=== PATIENT | male | born 1995 | race Two or more races ===

== ENCOUNTER 2023-03-23 19:02 | Emergency (ER) | payer BC, OTHER, SELFPAY ==
[2023-03-23 19:33] VITALS: BP 127/74; PULSE 110; RESP 18; TEMP 36.4; O2SAT 100
--- NOTE | 2023-03-23 19:57 | ED.NAVMDI ---
HPI - Nausea/Vomiting/Diarrhea General Chief complaint: Nausea/Vomiting/Diarrhea Stated complaint: burning abdomen,nausea, vomiting Time Seen by Provider: 03/23/23 19:43 Source: patient and RN notes reviewed Mode of arrival: ambulatory Limitations: no limitations History of Present Illness HPI Narrative: Patient presents today complaining of a one-month history of nausea and burning in his upper abdomen. Also reports 2 episodes of vomiting yesterday. Currently rates his pain 6/10. Patient had an endoscopy yesterday by his refrigeration service technician and was told that he had gastritis. He was told to continue cimetidine that he has been taking. He has been taking in 3-4x the normal dose due to his symptoms. He is scheduled for a colonoscopy at the end of next week and follow-up in April. States he uses take Nexium for his GERD, but had troubles getting it covered by his insurance so he had to switch to the cimetidine. He has been taking some Zofran for his nausea and has a new prescription waiting for him at the pharmacy. Related Data Home Medications Medication Instructions Recorded Confirmed cimetidine 800 mg tablet 800 mg PO BID 03/23/23 03/23/23 emtricitabine 200 mg-tenofovir 1 tablet PO DAILY 03/23/23 03/23/23 disoproxil fumarate 300 mg tablet ergocalciferol (vitamin D2) 1,250 1,250 mcg PO WEEKLY 03/23/23 03/23/23 mcg (50,000 unit) capsule mesalamine 500 mg capsule,extended 500 mg PO DAILY 03/23/23 03/23/23 release (Pentasa) ondansetron 4 mg disintegrating 4 mg PO PRN PRN Nausea And Vomiting 03/23/23 03/23/23 tablet Allergies Allergy/AdvReac Type Severity Reaction Status Date / Time No Known Allergies Allergy Verified 03/23/23 19:11 Review of Systems Review of Systems: CONSTITUTIONAL: Denies body aches, fever, chills, or sweats. EYES: Denies visual changes, redness, or discharge. ENT: Denies rhinorrhea, congestion, sore throat, or otalgia. CARDIOVASCULAR: Denies chest pain, palpitations, or edema. RESPIRATORY: Denies cough or dyspnea. GASTROINTESTINAL: Denies diarrhea.+ abdominal burning, nausea, vomiting GENITOURINARY: Denies dysuria or hematuria. SKIN: Denies rash, itching, or wounds. MUSCULOSKELETAL: Denies back pain, joint pain, or myalgia. NEUROLOGIC: Denies headache, numbness, tingling, or weakness. PSYCH: Denies depression or anxiety. [facility] Past Medical History Medical History (Updated 03/23/23 @ 20:06 by Ngozi Linder, LOTTERIES AGENT, ) Diverticulosis Gastroparesis GERD (gastroesophageal reflux disease) Ileitis Comments At time of signature, I have reviewed and agree with nursing past medical, surgical, social and family history unless otherwise noted. Please see nursing chart for further information. There is no relevant family history pertinent to the presenting complaint Exam Narrative: GENERAL: Well-appearing, well-nourished, and in no acute distress. HEAD: Normocephalic, atraumatic. EYES: EOMI. No redness or drainage. Conjunctivae normal. ENT: Mucous membranes pink and moist. NECK: Normal AROM. CHEST: No respiratory distress. Clear to auscultation. HEART: Regular rate and rhythm. No murmur appreciated. Normal peripheral pulses. ABDOMEN: Soft, , nondistended, normal active bowel sounds. + tenderness to the epigastrium without rebound or guarding EXTREMITIES: Normal range of motion. No edema. SKIN: Warm, dry, no rash. Capillary refill normal. Normal skin turgor. NEURO: No focal deficits. Alert and oriented x3. Gait steady. PSYCH: Normal affect. No signs of depression or anxiety. Course Course Level of Care: Express Care Visit Vital Signs Vital signs: Vital Signs Temperature 97.6 F 03/23/23 19:33 Pulse Rate 110 H 03/23/23 19:33 Respiratory Rate 18 03/23/23 19:33 Blood Pressure 127/74 03/23/23 19:33 Pulse Oximetry 100 03/23/23 19:33 Oxygen Delivery Room Air 03/23/23 19:33 Temperature 97.6 F 03/23/23 19:33 Pulse Rate 110 H 03/23/23 1
== END 2023-03-23 20:06 | disposition home or self-care (01) ==
PROVIDERS: Emergency Provider Nurse Practitioner
DX: K29.70 Gastritis, unspecified, without bleeding (principal); K21.9 Gastro-esophageal reflux disease without esophagitis
CPT/HCPCS: 99213; G0463

== ENCOUNTER 2024-10-30 12:30 | Emergency (ER) | payer BC, SELFPAY ==
--- OUTSIDE RECORDS SUMMARY | 2024-10-30 12:34 | XMS_ITS | Clinical Summary ---
Author Organization [facility] Address [address] [place] [address] Phone Care Team Providers Care Flight Attendant/Inflight Supervisor Name Role Phone Christine Mathew Primary Care Provider [phone] Caro Garnica MD Unavailable Allergies No known active allergies Medications ergocalciferol (VITAMIN D) 69304 UNIT Capsule 3 Active emtricitabine-t enofovir (TRUVADA) 200-300 MG Tablet Take 1 Tablet by mouth daily. 4 Active ondansetron (ZOFRAN-ODT) 4 MG TABLET DISPERSIBLE Take 4 mg by mouth. 4 Active cyanocobalamin (VITAMIN B-12) 1000 MCG/ML Solution 1,000 mcg by Subcutaneous route every 14 days. 4 Active Cimetidine 800 MG Tablet Take 800 mg by mouth 2 times daily. 5 Active Fexofenadine HCl 30 MG TABLET DISPERSIBLE Take 30 mg by mouth. Active B-D 3CC LUER-LATISHA SYR 25GX1 25G X 1 3 ML Misc USE TO ADMINISTER B12 INJECTIONS DIRECTED Active linaCLOtide (LINZESS) 72 MCG Capsule Take 72 mcg by mouth. 5 Active omeprazole (PriLOSEC) 40 MG CAPSULE DELAYED RELEASE Take 40 mg by mouth. Active folic acid (FOLVITE) 1 MG TabletIndicatio ns:Folate deficiency TAKE 1 TABLET BY MOUTH EVERY DAY 30 Tablet 3 Active Active Problems Problem Noted Date Diagnosed Date Iron deficiency 01/07/2023 Encounters Date Type Department Care Team Description 08/24/2024 4:00 PM CDT Lab [facility] [address] [phone] Lab, [place] Anemia, unspecified type 08/24/2024 Travel from Last 3 Months Immunizations Immunization Administration Dates Next Due Influenza, Injectable, Mdck, Preservative Free 1 Family History Medical History Relation Name Comments Depression Mother Relation Name Status Comments Mother Social History Tobacco Use Types Packs/Day Years Used Date Smoking Tobacco: Never Smokeless Tobacco: Never Tobacco Cessation:Counseling Given: Not Answered Alcohol Use Standard Drinks/Week Comments Never 0 (1 standard drink = 0.6 oz pur e alcohol) Sex and Gender Information Value Date Recorded Sex Assigned at Not on file Legal Sex Male 3:56 PM CDT Gender Identity Not on file Sexual Orientation Not on file Last Filed Vital Signs Vital Sign Reading Time Taken Comments Blood Pressure 102/72 05/26/2024 9:57 AM CDT Pulse 70 05/26/2024 9:57 AM CDT Temperature 36.7 C (98 F) 05/26/2024 9:57 AM CDT Respiratory Rate 18 02/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 Oxygen Saturation 98% 05/26/2024 9:57 AM CDT Inhaled Oxygen Concentration - - Weight 57.5 kg (126 lb 11.2 oz) 05/26/2024 9:57 AM CDT Height 160 cm (5' 3) 05/26/2024 9:57 AM CDT Body Mass Index 22.44 05/26/2024 9:57 AM CDT Plan of Treatment Upcoming Encounters Date Type Department Care Team (Late st Contact Info) Description 11/17/2024 10:00 AM CDT Lab [facility] [address] [phone] Lab, [place] 11/24/2024 9:30 AM CDT Office Visit [facility] [address] [place] [phone] Caro Garnica MD [address], [place] [phone] Health Maintenance Due Date Last Done Comments Hepatitis C Virus (HCV) Screening 1995 Influenza Immunization (#1) 10/12/202403/2023, 12/07/2022, 11/27/2019, Additional history exists Respiratory Syncytial Virus (RSV) Immunization (Adult) (1 - 1-dose 75+ series) 04/18/2070 Meningococcal Immunization (ACWY) Aged Out 11/12/2006 No longer eligible based on patient's age to complete this topic Human Papillomavirus (HPV) Immunization Completed 09/19/2011, 05/21/2011, 03/22/2011 DTaP/Tdap/Td Immunization Discontinued 2019, 11/12/2006, 10/30/2000, Additional history exists TdaP Immunization Completed 04/30/2019, 11/12/2006 Hepatitis B Immunization Completed 025, 04/13/2024, 1995, Additional history exists SARS-COV-2 Immunization Completed 07/05/19 25, 09/22/2023, 12/07/2022, Additional history exists Pneumococcal Immunization Combined Aged Out No longer eligible based on patient's age to complete this topic Rotavirus Immunization Aged Out No lo nger eligible based on patient's age to complete this topic Procedures Procedure Name Priority Date/Time Associated Diagnosis Comments CBC WITH AUTO DIFF OH Routine 08/24/2024 2:21 PM CDT RETICULOCYTE COUNT (RETIC) Routine 08/24/2024 2:21 PM CDT Anemia, unspecified type IRON W/ IRON BINDING CAPACITY OH Routine 08/24/2024 2:21 PM CDT Anemia, unspecified type FERRITIN Routine 08/24/2024 2:21 PM CDT Anemia, unspecified type FOLIC ACID (FOLATE) Routine 08/24/2024 2 :21 PM CDT Anemia, unspecified type VITAMIN B12 Routine 08/24/2024 2:21 PM CDT Anemia, unspecified type CMP (COMPREHENSIVE METABOLIC PANEL) Routine 08/24/2024 2:21 PM CDT Anemia, unspecified type from Last 3 Months Results * IRON W/ IRON BINDING CAPACITY OH (08/24/2024 2:21 PM CDT) IRON 124 50 - 212 ug/dL [facility] UIBC 221 155 - 355 ug/dL [facility] TIBC 345 261 - 478 ug/dl [facility] % Saturation 36 20 - 50 % [facility] 08/24/2024 2:21 PM CDT Narrative [facility] - 08/24/2024 3:00 PM CDT Release to patient->Immediate Caro Garnica MD LAB SEND OUTS Final Result [facility] [address] [place] [address], * (ABNORMAL) CBC WITH AUTO DIFF [place] (08/24/2024 2:21 PM CDT) WBC 5.8 4.0 - 10.0 10*3/uL [facility] HGB 14.3 13.7 - 17.5 g/dL [facility] HCT 41.1 40.1 - 51.0 % [facility] PLT 253 163 - 369 10*3/uL [facility] MPV 10.3 9.4 - 12.4 fL [facility] RBC 4.28(L) 4.63 - 6.08 10*6/uL [facility] MCV 96(H) 79 - 95 fL [facility] MCH 33.4(H) 25.6 - 32.2 pg [facility] MCHC 34.8 32.2 - 36.5 g/dL [facility] RDW 12.2 11.6 - 14.4 % [facility] Neutrophils % 55.1 36.0 - 66.0 % [facility] Lymphocytes % 37.5 19.0 - 40.0 % [facility] Monocytes % 5.7 4.1 - 12.1 % [facility] Eosinophils % 1.0 0.0 - 3.5 % [facility] Basophils % 0.5 0.0 - 1.0 % [facility] Absolute Neutrophils 3.2 1.4 - 6.6 10*3/uL [facility] Absolute Lymphocytes 2.2 0.8 - 4.0 10*3/uL [facility] Absolute Monocytes 0.3 0.2 - 1.2 10*3/uL [facility] Absolute Eosinophils 0.1 0.0 - 0.4 10*3/uL [facility] Absolute Basophils 0.0 0.0 - 0.1 10*3/uL [facility] 08/24/2024 2:21 PM CDT us Caro Garnica MD LAB SEND OUTS Final Result [facility] [address] [place] [address], [place] [phone] * VITAMIN B12 (08/24/2024 2:21 PM CDT) Vitamin B12 606 180 - 914 pg/mL [facility] Blood 08/24/2024 2:21 PM CDT Narrative [facility] 08/25/2024 3:25 PM CDT Release to patient->Immediate us Caro Garnica MD CHEMISTRY ORDERABLES Final Resul t [facility] [address] [place] [address], [place] [phone] * (ABNORMAL) RETICULOCYTE COUNT (RETIC) (08/24/2024 2:21 PM CDT) Reticulocyte count 1.31 0.51 - 1.81 % [facility] RET-He 37.90(H) 28.20 - 36.60 pg [facility] Comment: RET-He is a direct assessment of incorporation of iron into erythrocyte hemoglobin. It provides an indirect measure of the iron available for new erythropoiesis over past 2-4 days. Blood 08/24/2024 2:21 PM CDT Narrative [facility] - 08/24/2024 2:35 PM CDT Release to patient->Immediate Caro Garnica MD HEMATOLOGY ORDERABLES Final Resu lt Performing Organization Address [facility] Co de Phone Number [facility] [place] [address], * FOLIC ACID (FOLATE) (08/24/2024 2:21 PM CDT) Folate >20.00 >=5.90 ng/mL [facility] Blood 08/24/2024 2:[address] [facility] [place] [place] - 08/25/2024 3:25 PM CDT Release to patient->Immediate IS THE PATIENT REQUIRED TO BE FASTING FOR 12 HOURS?->No Caro Garnica MD CHEMISTRY ORDERABLES Final Resul t Performing Organization Address [facility] Co de Phone Number [facility] [place] [address], * FERRITIN (08/24/2024 2:21 PM CDT) Ferritin 78 24 - 336 ng/mL [facility] Blood 08/24/2024 2:21 PM CDT Narrative [facility] - 08/25/2024 3:25 PM CDT Release to patient->Immediate us Caro Garnica MD CHEMISTRY ORDERABLES Final Resul t [facility] [place] [address], * (ABNORMAL) CMP (COMPREHENSIVE METABOLIC PANEL) (08/24/2024 2:21 PM CDT) Glucose 98 70 - 105 mg/dL [facility] Blood Urea Nitrogen 14 7 - 25 mg/dL [facility] Creatinine 0.7 0.7 - 1.3 mg/dL [facility] Sodium 139 136 - 145 mEq/L [facility] Potassium 3.8 3.5 - 5.1 mEq/L [facility] Chloride 102 98 - 107 mEq/L [facility] Bicarbonate 26 21 - 31 mEq/L [facility] Total Bilirubin 0.6 0.3 - 1.0 mg/dL [facility] Alk. Phosphatase 52 34 - 104 U/L [facility] Aspartate Aminotransferase 13 13 - 39 U/L [facility] Alanine Aminotransferase 10 7 - 52 U/L [facility] Total Protein 7.0 6.4 - 8.9 g/dL [facility] Albumin 5.1 3.5 - 5.7 g/dL [facility] Calcium 9.5 8.6 - 10.3 mg/dL [facility] Anion Gap 14.8 7.0 - 15.0 mEq/L [facility] Globulin 1.9(L) 2.0 - 3.5 g/dL [facility] EGFR 128 >60 ml/min/1. 73m2 [facility] Comment: This eGFR is calculated using 2020 CKD-EPI Creatinine equation without race modifier based on the NKF-ASN task force recommendations Equation: cYWR=650*min(SCr/k,1)a*max(SCr/k,1)-1.200*0.9938Age*1.012 (if female), where SCr is serum creatinine, k is 0.7 for females and 0.9 for males, and a is -0.241 for females and -0.302 for males Blood 08/24/2024 2:21 PM CDT Narrative [facility] - 08/24/2024 3:00 PM CDT Release to patient->Immediate IS THE PATIENT REQUIRED TO BE FASTING FOR 8 HOURS?->No us Caro Garnica MD CHEMISTRY ORDERABLES Final Resul t [facility] [address] [place] [address], from Last 3 Months Insurance [facility] Care Teams Flight Attendant/Inflight Supervisor Relationship Specialty Start Date End Date Christine Mathew PAC [address] [place] [id number] PCP - General Physician Diet Aide 12/10/22 Caro Garnica MD [address], [place] [phone] Consulting Physician Oncology 12/10/22
--- OUTSIDE RECORDS SUMMARY | 2024-10-30 12:34 | XMS_ITS | Encounter Summary ---
Author Organization [facility] Address [address] [place] [address] Care Team Providers Care Felt Finisher Name Role Phone Arvin May MD Unavailable [phone] Lashonda Villarreal Primary Care Provider + Encounter Details Date Type Department Care Team (Late st Contact Info) Description 10/29/2024 Results Follow-Up [facility] [address] [phone] Lashonda Villarreal PA [address] [address] Vitamin D 25 hydroxy, Vitamin B12, Lipid panel, Additional followed-up results: 5 Social History Tobacco Use Types Packs/Day Years Used Date Smoking Tobacco: Never Smokeless Tobacco: Never AUDIT-C Answer Date Recorded Q1: How often do you have a drink containing alcohol? Never 06/12/2023 Q2: How many drinks containi ng alcohol do you have on a typical day when you are drinking? Patient does not drink Q3: How often do you have si x or more drinks on one occasion? Never 06/12/2023 PHQ-2 Answer Date Recorded PHQ-2 Total Score (If total score is 3 or more points, staff should administer the PHQ-9) 0 02/25/2024 Personal Safety Answer Date Recorded Have you ever been in or are you currently in a harmful physical or emotional relationship or is someone making you feel afraid or unsafe? 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
--- OUTSIDE RECORDS SUMMARY | 2024-10-30 12:34 | XMS_ITS | Clinical Summary ---
Author Organization [facility] Address [address] [place] [address] Care Team Providers Care Proration Clerk Name Role Phone Tim Kang MD Primary Care Provider Unavail able Social History Tobacco Use Types Packs/Day Years Used Date Smoking Tobacco: Never Assessed Sex and Gender Information Value Date Recorded Sex Assigned at Not on file Legal Sex Male 6:19 PM CDT Gender Identity Not on file Sexual Orientation Not on file Plan of Treatment Health Maintenance Due Date Last Done Comments Annual Physical 04/18/1998 Hepatitis C 04/18/2013 DTaP, Tdap and Td Vaccines ( 1 - Tdap) 04/18/2014 Hepatitis B Vaccines (1 of 3 - 19+ 3-dose series) 04/18/2014 HPV Vaccines (1 - 3-dose SCD M series) 04/18/2022 COVID-19 Vaccine ( - 2023-2 5 season) 2024 Meningococcal B Vaccine Aged Out No l onger eligible based on patient's age to complete this topic Meningococcal Vaccine Aged Out No alex carole eligible based on patient's age to complete this topic Pneumococcal Vaccine: Pediat rics (0 to 5 Years) and At-Risk Patients (6 to 49 Years) Aged Out No longer eligible b ased on patient's age to complete this topic RSV Immunizations Under 20 Months Aged Out No longer eligible based on patient's age to complete this topic Care Teams Proration Clerk Relationship Specialty Start Date End Date Tim Kang MD PCP - General 12/22/14
--- OUTSIDE RECORDS SUMMARY | 2024-10-30 12:34 | XMS_ITS | Clinical Summary ---
Author Organization [facility] Address [address] [place] [address] Care Team Providers Care Gre Instructor Name Role Phone Arvin May MD Unavailable [phone] Lashonda Villarreal Primary Care Provider + Allergies No known active allergies Medications syringe-needle,saf ety,disp unt 3 mL 25 gauge x 1 syringeIndications :B12 deficiency 1 kit every 14 (fourteen) days 24 each 4 Active fluticasone propionate (FLONASE) 50 mcg/actuation nasal sprayIndications:S easonal allergic rhinitis due to pollen Administer 2 sprays into each nostril daily 3 each 11 4 Active albuterol HFA (PROVENTIL HFA,VENTOLIN HFA,PROAIR HFA) 90 mcg/actuation inhalerIndications :Exercise-Induced Bronchospasm Prevention Inhale 2 puffs every 6 (six) hours as needed for wheezing 3 each 4 4 Active folic acid (FOLVITE) 1 mg tablet Take 1 tablet (1,000 mcg total) by mouth daily Active emtricitabine-teno fovir disoproxil fumerate (TRUVADA) 200-300 mg per tabletIndications: HIV Infection Pre-Exposure Prophylaxis Take 1 tablet by mouth daily 90 tablet 3 5 026 Active fexofenadine ODT (JACKELINE ODT) 30 mg disintegrating tablet Take 1 tablet (30 mg total) by mouth daily Active BD Luer-Cameron Syringe 3 mL 25 gauge x 1 syringe USE TO ADMINISTER B12 INJECTIONS DIRECTED 4 each 4 5 Active ergocalciferol (VITAMIN D) 50,000 unit capsule Take 1 capsule (50,000 Units total) by mouth every 14 (fourteen) days 5 Active ondansetron ODT (ZOFRAN-ODT) 4 mg disintegrating tabletIndications: Nausea and vomiting, unspecified vomiting type Take 1 tablet (4 mg total) by mouth every 8 (eight) hours as needed for nausea or vomiting 30 tablet 2 5 Active ondansetron (ZOFRAN) 4 mg tabletIndications: Nausea and vomiting, unspecified vomiting type Take 1 tablet (4 mg total) by mouth every 8 (eight) hours as needed for nausea or vomiting 30 tablet 2 5 Active cimetidine (TAGAMET) 800 mg tabletIndications: Gastroesophageal reflux disease, unspecified whether esophagitis present,Intestinal malabsorption, unspecified type Take 1 tablet (800 mg total) by mouth 2 (two) times a day 60 tablet 2 5 025 Active lubiprostone (AMITIZA) 8 mcg capsuleIndications :Irritable bowel syndrome with constipation Take 1 capsule (8 mcg total) by mouth 2 (two) times a day with meals Take with meals 60 capsule 11 5 026 Active cyanocobalamin (Vitamin B-12) 1,000 mcg/mL injection INJECT 1 ML (1,000 MCG TOTAL) UNDER THE SKIN EVERY 14 (FOURTEEN) DAYS 2 mL 2 5 Active linaCLOtide (LINZESS) 72 mcg capsuleIndications :Irritable bowel syndrome with constipation Take 1 capsule (72 mcg total) by mouth daily 30 capsule 5 Active Active Problems Problem Noted Date Diagnosed Date Physical exam, annual 02/25/2024 Assessment & Plan (02/25/2024 10:56 AM ROLL PRESS OPERATOR): Doing well Continue annual eye exam Continue dental exam every 6 months Plans for getting wisdom teeth out at the end of March Has upcoming appointment with GI, Dr. Coronado Following with Hematology for iron deficiency Recent labs reviewed Vaccinations reviewed Vitamin B 12 deficiency 02/25/2024 Chest pain 10/07/2023 Assessment & Plan (10/07/2023 8:37 AM CDT): New onset chest discomfort in the past week. EKG reassuring. Labs and CXR ordered. Discussed reactive airways. Vs pleurisy. Advised to try inhaler more frequently and see if any change in symptoms. Vitamin D deficiency 08/20/2023 Overview (08/20/2023): Repeat levels Constipation 05/24/2023 Assessment & Plan (05/18/2024 8:48 AM CDT): Reports that Linzess 145mcg is giving him diarrhea, even if he is taking it every other day. He states that he can have multiple loose bowel movements. No reports of blood or mucus. -We will decrease Linzess to 72 mcg daily -Recommended starting an [id number] probiotic as well. Assessment & Plan (03/20/2024 8:30 AM ROLL PRESS OPERATOR): Chronic constipation, worsening recently. Has failed Metamucil and MiraLax. Can go 1 week without a bowel movement. Had diarrhea with highest dose of Linzess. -high-fiber diet -Start Linzess 145 mcg p.o. daily Assessment & Plan (05/24/2023 11:21 AM CDT): Mild, intermittent constipation. -high-fiber diet -continue Metamucil b.i.d. -MiraLax OTC Gastroesophageal reflux disease 05/24/2023 Assessment & Plan (05/18/2024 8:50 AM CDT): Reports that he is doing well off of medication however with the holidays he began having mild complaints as he was eating fried foods. He states that he restarted his daily PPI and currently has no complaints. -Educated on importance of avoiding certain trigger foods. -Discuss occasional flare-ups -Recommended for him to continue the Tagamet but a would like him to come off of daily PPI Assessment & Plan (03/20/2024 8:30 AM ROLL PRESS OPERATOR): Chronic epigastric discomfort improved with the PPIs and famotidine. -continue omeprazole 40 mg p.o. b.i.d. and cimetidine b.i.d.. -Next visit, we will discuss decreasing PPIs to once daily and cimetidine p.r.n. -RECOMMENDATIONS given include: anti-reflux maneuvers, Avoid acidic foods like oranges and tomatoes., avoidance of spicy foods, avoid eating 3-4 hours before bed, elevation of the head of the bed, and weight loss Assessment & Plan (05/24/2023 11:21 AM CDT): Chronic epigastric discomfort improved with the PPIs. -continue PPI daily, patient states he is taken omeprazole 40 mg p.o. daily -RECOMMENDATIONS given include: anti-reflux maneuvers, Avoid acidic foods like oranges and tomatoes., avoidance of spicy foods, avoid eating 3-4 hours before bed, elevation of the head of the bed, and weight loss History of drug overdose 03/13/2023 Iron deficiency anemia 02/12/2023 Assessment & Plan (03/20/2024 8:29 AM ROLL PRESS OPERATOR): EGD and colonoscopy performed [address] Nicolas, findings notable for gastritis, internal hemorrhoids, otherwise unremarkable EGD and colonoscopy. Pathology negative for H pylori. Capsule endoscopy june 2023 normal. -Follow up with PCP Assessment & Plan (08/20/2023 9:08 AM CDT): Stable, no changes. Continue current regimen with iron infusions per hematology. Repeat labs ordered Assessment & Plan (05/24/2023 11:20 AM CDT): Patient has a history of iron-deficiency anemia. Had EGD and colonoscopy by Dr. Nicolas March 2023. -we will obtain prior records -pending review, we will consider capsule endoscopy or CT enterography Intestinal malabsorption 02/12/2023 Assessment & Plan (08/20/2023 9:09 AM CDT): Stable, no changes. Continue current regimen as per GI - reviewed recent labs Assessment & Plan (05/24/2023 11:20 AM CDT): Patient has concerns for malabsorption due to multiple vitamin deficiencies. Patient had a colonoscopy with Dr. Nicolas March 2023 per patient was normal however prior colonoscopy with ileitis and patient has been maintained on Pentasa. -we will order labs - CRP, ESR, fecal calprotectin -we will obtain prior colonoscopy records -further management pending review of records and workup as above Colitis 09/10/2017 Leukopenia 09/10/2017 Assessment & Plan (08/20/2023 9:09 AM CDT): Repeat labs ordered Chronic fatigue 09/10/2017 Nausea 09/10/2017 Resolved Problems Problem Noted Date Diagnosed Date Resolved Date Iron deficiency 01/07/2023 08/20/2023 Intentional drug overdose 10/09/2010 Overview (11/05/2022): 15yo male with h/o depression, with suicidal intention ingested 11-23, 1mg tablets of Risperdal. Pt was lethargic on admission but responding appropriately, mild shakiness resolved while asleep, and did not express suicidal or homicidal intention while inpatient. Labs drawn at outside hospital were WNL. Patient was observed for side effects of ingestion. Planned to admit to [facility] psych unit on 10/09/10 but patient became tachycardic into 150s - likely related to patient-acknowledged anxiety about transferring to psych unit. Decided to observe patient for additional night. No tachycardia or other symptoms and patient was discharged into psych unit at [facility] on 10/10/10 in stable condition. Encounters Date Type Department Care Team Description 10/29/2024 Results Follow-Up [facility] [address] [address] Lashonda Villarreal [place] Vitamin D 25 hydroxy, Vitamin B12, Lipid panel, Additional followed-up results: 5 10/28/2024 1:15 PM CDT Lab [facility] [address] [place] [address] Vitamin D deficiency; Iron deficiency anemia, unspecified iron deficiency anemia type; Vitamin B 12 deficiency; Diabetes mellitus screening; Leukopenia, unspecified type from Last 3 Months Immunizations Immunization Administration Dates Next Due DTP 10/30/2000 DTP / HiB 04/27/1996, 6,1995,07/10 HPV, Quadrivalent 05/21/2011,03/22/2011 HPV, Unspecified 09/19/2011 Hep A / Hep B 11/12/2006 Hep A, Pediatric 11/12/2006,09/13/2005 Hep B, Adolescent or Pediatric 1995,1995,1995 Hep B, Unspecified 04/13/2024 IPV 10/30/2000 Influenza, Live, Intranasal, Quadrivalent 01/29/2013 Influenza, Quadrivalent, Spl it, Intramuscular 11/27/2019,11/15/2008 Influenza, Trivalent, Cell Culture-based MDCK, Preservative Free, Antibiotic Free, Intramuscular 11/13/2023 Influenza, Trivalent, Preser vative Free, Intramuscular 02/27/2012 Influenza, Unspecified 11/13/2023,2022(Deferred: Patient decision),12/13/2022(Deferred: Patient decision),12/13/2022(Deferred: Patient decision),01/04/2022(Deferred: Patient decision),11/11/2021(Deferred: Patient decision),11/11/2021(Deferred: Parental decision) MMR 10/30/2000,04/27/1996 Meningococcal ACWY, Unspecified 11/12/2006 OPV 04/27/1996, 6,1995,07/10 Polio, Unspecified 09/29/2000 Tdap 04/30/2019,04/30/2019,11/12/2006 Surgical History Surgery Date Site/Laterality Comments COLONOSCOPY 02/11/2017 - 02/10/2018 UPPER GASTROINTESTINAL ENDOSCOPY 02/11/2017 - 02/10/2018 APPENDECTOMY 01/11/2023 ESOPHAGOGASTRODUODENOSCOPY 03/14/2023 - 04/11/2023 COLONOSCOPY 03/14/2023 - 04/11/2023 WISDOM TOOTH EXTRACTION Medical History Medical History Date Comments Allergic rhinitis Gastritis Ileitis Gastroparesis Gluten intolerance Anemia no hx of tranfus ions Depression Anxiety Diverticulosis Chicken pox Social History Tobacco Use Types Packs/Day Years Used Date Smoking Tobacco: Never Smokeless Tobacco: Never Tobacco Cessation:Counseling Given: Not Answered AUDIT-C Answer Date Recorded Q1: How often [...] on file Legal Sex Male 1:12 AM ROLL PRESS OPERATOR Gender Identity Male 05/22/2023 11:02 AM CDT Sexual Orientation [place]ale[place] 05/22/2023 11 :02 AM CDT Obstetrics History Last Filed Vital Signs Vital Sign Reading Time Taken Comments Blood Pressure 104/70 05/18/2024 8:13 AM CDT Pulse 69 05/18/2024 8:13 AM CDT Temperature 36.1 C (97 F) 02/25/2024 10:07 AM ROLL PRESS OPERATOR Respiratory Rate 18 02/25/2024 10:0 7 AM ROLL PRESS OPERATOR Oxygen Saturation 99% 02/25/2024 10: 07 AM ROLL PRESS OPERATOR Inhaled Oxygen Concentration - - Weight 57.5 kg (126 lb 11.2 oz) 05/18/2024 8:13 AM CDT Height 157.5 cm (5' 2) 05/18/2024 8:13 AM CDT Body Mass Index 23.17 05/18/2024 8:13 AM CDT Plan of Treatment Health Maintenance Due Date Last Done Comments Influenza Vaccine (#1) 2024 , 11/13/2023, 12/07/2022, Additional history exists Depression Screening 02/24/2025 02/25/2024, 12/09/2023, 10/07/2023, Additional history exists Regular Well Visit/Exam 18-64 02/24/2025 02/25/2024 DTaP/Tdap/Td Vaccine (9 - Td or Tdap) 04/29/2029 04/30/2019, 04/30/2019, 11/12/2006, Additional history exists HPV Vaccines Completed 09/19/2011, 04/10/2011, 03/22/2011 Hepatitis C Screening Completed 03/23/2024 Hepatitis B Screening Completed 06/15/2024 , 04/13/2024, 03/23/2024, Additional history exists Covid-19 Vaccine Completed 07/04/2024, 12/2023, 12/07/2022, Additional history exists Pneumococcal vaccine <65 Aged Out No longer eligible based on patient's age to complete this topic Procedures Procedure Name Priority Date/Time Associated Diagnosis Comments EGFR Routine 10/28/2024 1:34 PM CDT Vitamin D deficiency Iron deficiency anemia, unspecified iron deficiency anemia type Vitamin B 12 deficiency Diabetes mellitus screening Leukopenia, unspecified type DIFFERENTIAL AUTO Routine 10/28/2024 1:3 4 PM CDT Vitamin D deficiency Iron deficiency anemia, unspecified iron deficiency anemia type Vitamin B 12 deficiency Diabetes mellitus screening Leukopenia, unspecified type CBC WITH AUTO DIFFERENTIAL Routine 10/28/2024 1:34 PM CDT Vitamin D deficiency Iron deficiency anemia, unspecified iron deficiency anemia type Vitamin B 12 deficiency Diabetes mellitus screening Leukopenia, unspecified type COMPREHENSIVE METABOLIC PANEL Routine 10/28/2024 1:34 PM CDT Vitamin D deficiency Iron deficiency anemia, unspecified iron deficiency anemia type Vitamin B 12 deficiency Diabetes mellitus screening Leukopenia, unspecified type HEMOGLOBIN A1C Routine 10/28/2024 1:34 PM CDT Vitamin D deficiency Iron deficiency anemia, unspecified iron deficiency anemia type Vitamin B 12 deficiency Diabetes mellitus screening Leukopenia, unspecified type LIPID PANEL Routine 10/28/2024 1:34 PM CDT Vitamin D deficiency Iron deficiency anemia, unspecified iron deficiency anemia type Vitamin B 12 deficiency Diabetes mellitus screening Leukopenia, unspecified type VITAMIN B12 Routine 10/28/2024 1:34 PM CDT Vitamin D deficiency Iron deficiency anemia, unspecified iron deficiency anemia type Vitamin B 12 deficiency Diabetes mellitus screening Leukopenia, unspecified type VITAMIN D 25 HYDROXY Routine 10/28/2024 1:34 PM CDT Vitamin D deficiency Iron deficiency anemia, unspecified iron deficiency anemia type Vitamin B 12 deficiency Diabetes mellitus screening Leukopenia, unspecified type HEPATITIS C ANTIBODY Routine 03/23/2024 11:14 AM ROLL PRESS OPERATOR Encounter for HIV pre-exposure prophylaxis Need for hepatitis C screening test from Last 3 Months or Most Recently Relevant to Health Maintenance Results * eGFR (10/28/2024 1:34 PM CDT) [facility] eGFR >90 >=60 mL/min/1. 73 m2 Comment: Interpretive Data Reference Interval Normal >/= 90 mL/min/1.73m2 Mildly decreased* 60 - 89 mL/min/1.73m2 Mildly to moderately decreased 45 - 59 mL/min/1.73m2 Moderately to severely decreased 30 - 44 mL/min/1.73m2 Severely decreased 15 - 29 mL/min/1.73m2 Kidney Failure < 15 mL/min/1.73m2 *Relative to young adult level Estimated glomerular filtration rate is determined by the 2020 CKD-EPI equation recommended by the National Kidney Foundation (A Unifying Approach to GFR Estimation: Recommendations of the NKF-ASK Task Force on Reassessing the Inclusion of Race in Diagnosing Kidney Disease, JASN 2020). The CKD-EPI equation should not be used for patients with unstable renal function and has not been validated in children and those over 70. Current interpretive data was last reviewed 2020. Testing performed by: [facility], [address] [place] [address]., [address] Blood 10/28/2024 1:34 PM CDT 10/28/2024 2:25 PM CDT us Lashonda ROLLINS LAB BLOOD ORDERABLES Fin al Result BANNERRY [address] [facility] Department [place] [address] * Differential, auto (10/28/2024 1:34 PM CDT) Neutrophil abs 3.44 1.50 - 6.50 K/cumm Comment:Testing performed by : [address] [address] Imm gran abs 0.01 0.00 - 0.10 K/cumm CLYDE Comment:Testing performed by : [address] [address] Lymphocyte abs 2.22 0.80 - 3.30 K/cumm CLYDE Comment:Testing performed by : [address] [address] Monocyte abs 0.34 0.20 - 0.80 K/cumm CLYDE Comment:Testing performed by : [address] [address] Eosinophil abs 0.07 0.00 - 0.50 K/cumm CLYDE Comment:Testing performed by : [address] [address] Basophil abs 0.04 0.00 - 0.10 K/cumm CLYDE Comment:Testing performed by : [address] [address] Neutrophil pct 56.1 % CLYDE Comment: Interpretive Data Percent cell count reference ranges are not reported, since discordance with absolute values may lead to misinterpretation of CBC data. Current Interpretive Data was last revised on 2017. Testing performed by: [address] [address] Imm gran pct 0.2 % CLYDE Comment: Interpretive Data Percent cell count reference ranges are not reported, since discordance with absolute values may lead to misinterpretation of CBC data. Current Interpretive Data was last revised on 2017. Testing performed by: [address] [address] Lymphocyte pct 36.3 % [facility] Comment: Interpretive Data Percent cell count reference ranges are not reported, since discordance with absolute values may lead to misinterpretation of CBC data. Current Interpretive Data was last revised on 2017. Testing performed by: [address] [address] Monocyte pct 5.6 % CLYDE Comment: Interpretive Data Percent cell count reference ranges are not reported, since discordance with absolute values may lead to misinterpretation of CBC data. Current Interpretive Data was last revised on 2017. Testing performed by: [address] [address] Eosinophil pct 1.1 % CLYDE Comment: Interpretive Data Percent cell count reference ranges are not reported, since discordance with absolute values may lead to misinterpretation of CBC data. Current Interpretive Data was last revised on 2017. Testing performed by: [address] [address] Basophil pct 0.7 % CLYDE Comment: Interpretive Data Percent cell count reference ranges are not reported, since discordance with absolute values may lead to misinterpretation of CBC data. Current Interpretive Data was last revised on 2017. Testing performed by: [address] [address] Blood 10/28/2024 1:34 PM CDT 10/28/2024 2:26 PM CDT us Lashonda ROLLINS LAB BLOOD ORDERABLES Fin al Result BANNERRY [address] [facility] Department [place] [address] * CBC with auto differential (10/28/2024 1:34 PM CDT) WBC 6.12 3.80 - 9.90 K/cumm Comment:Testing performed by : [address] [address] Hgb 14.6 13.0 - 17.5 g/dL CLYDE Comment:Testing performed by : [address], [address] Hct 41.5 38.9 - 50.3 % CLYDE Comment:Testing performed by : [address] [address] Plt 283 150 - 400 K/cumm CLYDE Comment:Testing performed by : [address] [address] MPV 10.0 9.1 - 12.3 fL CLYDE Comment:Testing performed by : [address], [address] RBC 4.45 4.30 - 5.80 M/cumm CLYDE Comment:Testing performed by : [address] [address] MCV 93.3 81.3 - 96.4 fL CLYDE Comment:Testing performed by : [address], [address] MCH 32.8 27.1 - 33.3 pg CLYDE Comment:Testing performed by : [address] [address] MCHC 35.2 32.3 - 35.7 g/dL CLYDE Comment:Testing performed by : [address], [address] RDW CV 12.7 11.1 - 14.9 % CLYDE Comment:Testing performed by : [address], [address] RDW SD 43.3 35.7 - 48.1 fL CLYDE Comment:Testing performed by : [address], [address] NRBC abs 0.00 0.00 - 0.01 K/cumm CLYDE Comment:Testing performed by : [address], [address] Blood 10/28/2024 1:34 PM CDT 10/28/2024 2:26 PM CDT Lashonda ROLLINS LAB BLOOD ORDERABLES Fin al Result Performing Organization Address City/State/[facility] Co de Phone Number CLYDE [facility] [place] [address] * Vitamin D 25 hydroxy (10/28/2024 1:34 PM CDT) [facility] Vitamin D 25-OH 57.0 30.0 - 80.0 ng/mL Blood 10/28/2024 1:34 PM CDT 10/28/2024 5:31 PM CDT Lashonda ROLLINS LAB BLOOD ORDERABLES Fin al Result Performing Organization Address [facility] de Phone Number KYLE[address] [address] * Hemoglobin A1c (10/28/2024 1:34 PM CDT) [facility] Hgb A1C 5.2 4.0 - 5.6 % Comment:Testing performed by : [address] [address] Estimated Average Glucose 103 mg/dL KYLERY Comment: The ADA recommends reporting an estimated Average Glucose (eAG) with all Hemoglobin A1c results using the equation derived from a study of 507 normal and diabetic adults. Minority populations were underrepresented and children were not included. (Diabetes Care 31:1292-7878, 2008). The eAG is not equivalent to a fasting glucose. Testing performed by: [address] [address] Blood 10/28/2024 1:34 PM CDT 10/28/2024 2:26 PM CDT Lashonda ROLLINS LAB BLOOD ORDERABLES Fin al Result Performing Organization Address [facility] Co de Phone Number [place] [address] [place] [address] * Vitamin B12 (10/28/2024 1:34 PM CDT) [facility] Vitamin B12 692 230 - 1,250 pg/mL Comment:Testing performed by : [address] [address] Blood 10/28/2024 1:34 PM CDT 10/28/2024 2:26 PM CDT us Lashonda ROLLINS LAB BLOOD ORDERABLES Fin al Result CLYDE [address] [facility] Department [place] [address] * Lipid panel (10/28/2024 1:34 PM CDT) Cholesterol 170 30 - 199 mg/dL Comment: Interpretive Data Ages < or = 19 years Acceptable: <170 mg/dL Borderline high: 170-199 mg/dL High: >or= 200 mg/dL Ages > or = 20 years Desirable: <200 mg/dL Borderline high: 200-239 mg/dL High: >or= 240 mg/dL Literature References: 1. Expert Panel on Integrated Guidelines for Cardiovascular Health and Risk Reduction in Children and Adolescents. Pediatrics 2011;128:S213 2. NCEP Expert Panel. Circulation 2004;110:227 Current Interpretive Data was last revised on 2017. Testing performed by: [address] [address] Triglycerides 68 <=149 mg/dL CLYDE Comment: Interpretive Data Ages < or = 9 years Acceptable: <75 mg/dL Borderline high: 75-99 mg/dL High: >or= 100 mg/dL Ages 10 to 20 years Acceptable: <90 mg/dL Borderline high: 90-129 mg/dL High: >or= 130 mg/dL Ages > or = 20 years Desirable: <150 mg/dL Borderline high: 150-199 mg/dL High: 200-499 mg/dL Very high: >or= 499 mg/dL Literature References: 1. Expert Panel on Integrated Guidelines for Cardiovascular Health and Risk Reduction in Children and Adolescents. Pediatrics 2011;128:S213 2. NCEP Expert Panel. Circulation 2004;110:227 Current Interpretive Data was last revised on 2017. Testing performed by: [address] [address] HDL 54 >=40 mg/dL CLYDE Comment: Interpretive Data Ages < or = 19 years Acceptable: >45 mg/dL Borderline low: 40-45 mg/dL Low: <40 mg/dL Ages > or = 20 years Desirable: >or= 60 mg/dL Low: <40 mg/dL Literature References: 1. Expert Panel on Integrated Guidelines for Cardiovascular Health and Risk Reduction in Children and Adolescents. Pediatrics 2011;128:S213 2. NCEP Expert Panel. Circulation 2004;110:227 Current Interpretive Data was last revised on 2017. Testing performed by: [facility], [address] [place] [address]., [address] LDL, calculated 103 <=129 mg/dL CLYDE Comment: Interpretive Data Ages < or = 19 years Acceptable: <110 mg/dL Borderline high: 110-129 mg/dL High: >or= 130 mg/dL Ages > or = 20 years Optimal: <100 mg/dL Near optimal: 100-129 mg/dL Borderline high: 130-159 mg/dL High: >160 mg/dL Calculated using the Ramon LDL-C estimating equation. This equation was implemented on 2023. Prior to this date LDL-C was estimated using the Friedewald equation. Literature References: 1. Expert Panel on Integrated Guidelines for Cardiovascular Health and Risk Reduction in Children and Adolescents. Pediatrics 2011;128:S213 2. NCEP Expert Panel. Circulation 2004;110:227 3. Ramon Foster et al. ANDRES Cardiol. 2020 June 11;5(5):540-548. doi: [email or web address] Current Interpretive Data was last revised on 2023. Testing performed by: [facility], [address] [place] [address]., [address] Non-HDL Cholesterol 116 mg/dL CLYDE Comment: Interpretive Data Ages < or = 19 years Acceptable: <120 mg/dL Borderline high: 120-144 mg/dL High: >145 mg/dL Ages > or = 20 years When triglycerides are >200 mg/dL, Non-HDL cholesterol is a secondary target of therapy with treatment goals that are 30 mg/dL greater than the LDL cholesterol target. Literature References: 1. Expert Panel on Integrated Guidelines for Cardiovascular Health and Risk Reduction in Children and Adolescents. Pediatrics 2011;128:S213 2. NCEP Expert Panel. Circulation 2004;110:227 Current Interpretive Data was last revised on 2017. Testing performed by: [address] [address] Chol/HDL ratio 3 CLYDE Comment:Testing performed by : [address] [address] Blood 10/28/2024 1:34 PM CDT 10/28/2024 2:25 PM CDT us Lashonda ROLLINS LAB BLOOD ORDERABLES Fin al Result CLYDE [address] [facility] Department [place] [address] * (ABNORMAL) Comprehensive metabolic panel (10/28/2024 1:34 PM CDT) Sodium 139 135 - 145 mmol/L Comment:Testing performed by : [address] [address] Potassium, pl 3.8 3.3 - 4.9 mmol/L CLYDE Comment:Testing performed by : [address] [address] Chloride 103 97 - 110 mmol/L CLYDE Comment:Testing performed by : [address] [address] CO2 22 22 - 32 mmol/L CLYDE Comment:Testing performed by : [address] [address] Anion gap 14 2 - 15 mmol/L CLYDE Comment:Testing performed by : [address] [address] BUN 17 6 - 25 mg/dL CLYDE Comment:Testing performed by : [address] [address] Creatinine 0.77(L) 0.80 - 1.30 mg/dL CLYDE Comment:Testing performed by : [address] [address] Glucose 92 70 - 199 mg/dL CLYDE Comment: Interpretive Data Fasting glucose >/= 126 mg/dl is diagnostic for diabetes. Fasting is defined as no caloric intake for at least 8 hours. Fasting glucose between 100 mg/dl to 125 mg/dl is diagnostic of prediabetes. In a patient with classic symptoms of hyperglycemia or hyperglycemic crisis, a random glucose >/= 200 mg/dl is diagnostic for diabetes. In the absence of unequivocal hyperglycemia, results should be confirmed by repeat testing. The classification and Diagnosis of Diabetes Diabetes Care 202; 46: S19-S40. Current interpretive data was last revised 2022. Testing performed by: [address] [address] Calcium 9.5 8.5 - 10.3 mg/dL CLYDE Comment:Testing performed by : [address] [address] Bilirubin, total 0.7 0.1 - 1.2 mg/dL CLYDE Comment:Testing performed by : [address] [address] Protein, pl 7.4 6.5 - 8.5 g/dL CLYDE Comment:Testing performed by : [address] [address] Albumin 4.9 3.5 - 5.0 g/dL CLYDE Comment:Testing performed by : [address] [address] Alk phos 56 40 - 130 Units/L CLYDE Comment:Testing performed by : [address] [address] ALT 15 7 - 55 Units/L CLYDE Comment:Testing performed by : [address] [address] AST 16 10 - 50 Units/L CLYDE Comment:Testing performed by : [address] [address] Blood 10/28/2024 1:34 PM CDT 10/28/2024 2:25 PM CDT us Lashonda ROLLINS LAB BLOOD ORDERABLES Fin al Result CLYDE [address] [facility] Department [place] [address] * Hepatitis C antibody Blood (03/23/2024 11:14 AM ROLL PRESS OPERATOR) Hep C Ab Nonreactive Nonreactive Comment: Antibodies to HCV not detected. Does NOT exclude the possibility of recent exposure to HCV. Current interpretive data was last revised on 21 Interpretive Data Nonreactive: Antibodies to HCV not detected. Does NOT exclude the possibility of recent exposure to HCV. Equivocal: Equivocal for HCV antibodies. Supplemental molecular testing will be automatically performed to determine infection status in accordance with current CDC screening recommendations. Reactive: Positive for HCV antibodies. This may represent current or past HCV infection. Supplemental molecular testing will be automatically performed to determine current infection status in accordance with current CDC screening recommendations. Interpretive data was last revised on 2019. Blood 03/23/2024 11:1 4 AM ROLL PRESS OPERATOR 03/23/2024 11:25 AM ROLL PRESS OPERATOR Lashonda ROLLINS LAB MICROBIOLOGY - [facility] ORDERABLES Final Result CLYDE [address] [facility] Department [place] [address] from Last 3 Months or Most Recently Relevant to Health Maintenance Insurance IDPA [employer]ET[employer] [facility] Advance Directives For more information, please contact: [phone] Documents on File Type Date Recorded Patient Locomotive Engineer Diesel Expl anation Power of Polymerization Supervisor 08/21/2024 11:03 AM Chino Garcia [facility] Power Polymerization Supervisor.pdf Healthcare Agents on File Name Relationship Healthcare Agent Relationshi p Communication Chino Garcia Partner Health Care Agent Care Teams Gre Instructor Relationship Specialty Start Date End Date Lashonda Villarreal PA [address] [facility] [address] [place] [address] PCP - General Family Medicine 08/20/23 Arvin May MD [address] [facility] [address] [place] [address] Consulting Physician General Surgery 01/11/23
--- OUTSIDE RECORDS SUMMARY | 2024-10-30 12:34 | XMS_ITS | Clinical Summary ---
Author Organization [facility] Address [address] [address] Care Team Providers Care Librarian Head Name Role Phone Unavailable Primary Care Provider Unavailabl e Source Comments [facility],non-owned Affiliates and Associated Physician Practices is amultiple site organization consisting of ambulatory clinics and hospital sitesin [place], [place], [place] and [place]. This disclosure is being madepursuant to the Care Everywhere program and may not contain all information available regarding this patient. Last updated 17.[facility] Allergies No known active allergies Medications * Be aware that medications may not be up to date on this document. Alwaysverify current medications with the patient. No known medications Active Problems Problem Noted Date Diagnosed Date Intentional risperdal overdose 10/09/2010 Overview (10/15/2010): 15yo male with h/o depression, with suicidal intention ingested 11-23, 1mg tablets of Risperdal. Pt was lethargic on admission but responding appropriately, mild shakiness resolved while asleep, and did not express suicidal or homicidal intention while inpatient. Labs drawn at outside hospital were WNL. Patient was observed for side effects of ingestion. Planned to admit to [facility] psych unit on 10/09/10 but patient became tachycardic into 150s - likely related to patient-acknowledged anxiety about transferring to psych unit. Decided to observe patient for additional night. No tachycardia or other symptoms and patient was discharged into psych unit at [facility] on 10/10/10 in stable condition. 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 Gender Identity Not on file Sexual Orientation Not on file Last Filed Vital Signs Vital Sign Reading Time Taken Comments Blood Pressure 94/52 10/10/2010 7:45 AM CDT Pulse 90 10/10/2010 11:30 AM CDT Temperature 37 C (98.6 F) 10/10/2010 7:45 AM CDT Respiratory Rate 20 10/10/2010 11:30 AM CDT Oxygen Saturation 99% 10/10/2010 11:30 AM CDT Inhaled Oxygen Concentration - - Weight 53 kg (116 lb 13.5 oz) 10/09/2010 1:36 AM CDT Height 154.9 cm (5' 1) 10/09/2010 1:36 AM CDT Body Mass Index 22.08 10/09/2010 1:36 AM CDT Plan of Treatment Health Maintenance Due Date Last Done Comments HIV SCREENING 04/18/2010 HEPATITIS C SCREENING 04/14/2013 DTAP/TDAP/TD VACCINES (1 - Tdap) 04/18/2014 HEPATITIS B VACCINE (1 of 3 - 19+ 3-dose series) 04/18/2014 HPV VACCINE (1 - 3-dose SCDM series) 04/18/2022 DEPRESSION SCREENING 02/12/2024 COVID-19 VACCINE (1 - 2023-2 5 season) 2024 INFLUENZA VACCINE (#1) 2024 ZOSTER VACCINE (1 of 2) 04/18/2045 HIB VACCINE Aged Out No longer eligi ble based on patient's age to complete this topic MENINGOCOCCAL (Group B) VACC INE SHARED DECISION-MAKING Aged Out No longer eligibl e based on patient's age to complete this topic MENINGOCOCCAL GROUPS A/C/Y/W VACCINE Aged Out No longer eligible b ased on patient's age to complete this topic PNEUMOCOCCAL VACCINE Aged Out No long er eligible based on patient's age to complete this topic
[2024-10-30 12:47] VITALS: BP 112/76; PULSE 82; RESP 18; TEMP 36.4; O2SAT 100
--- NOTE | 2024-10-30 12:57 | ED.URI ---
HPI - URI/Sore Throat General Chief Complaint: Upper Respiratory Infection Stated Complaint: sinus issues Time Seen by Provider: 10/30/24 12:58 Source: patient, RN notes reviewed and old records reviewed Mode of arrival: ambulatory Limitations: no limitations History of Present Illness HPI Narrative: 29 year old male accompanied by friend presents to express care with complaints of nasal congestion, runny nose and sinus pressure since yesterday. 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 Patient reports no fever no nausea vomiting or diarrhea, no body aches or any cough. Patient reports that he has taken some Ibuprofen and has used Flonase nasal spray. Patient reports concern for possible sinus infection,COVID or Flu MD elicited complaint: cough and sore throat Pertinent past history: sinusitis and seasonal allergies Onset (ago): day(s) (since yesterday) Consistency: constant Severity: moderate Description of mucous: clear Able to tolerate fluids by mouth: Yes Treatments prior to arrival: ibuprofen and other (Mickie, flonase) Related Data Home Medications ?Medication ?Instructions ?Recorded ?Confirmed ?Last Taken ?Type cimetidine 800 mg tablet 800 mg PO BID 03/23/23 10/30/24 Unknown History emtricitabine 200 mg-tenofovir 1 tablet PO DAILY 03/23/23 10/30/24 Unknown History disoproxil fumarate 300 mg tablet ergocalciferol (vitamin D2) 1,250 1,250 mcg PO WEEKLY 03/23/23 10/30/24 Unknown History mcg (50,000 unit) capsule albuterol 90 mcg-budesonide 80 inh inhalation 10/30/24 Unknown History mcg/actuation HFA aerosol inhaler (Airsupra) cyanocobalamin (vitamin B-12) mcg 10/30/24 Unknown History 1,000 mcg/mL injection solution fluticasone propionate 45 inhalation 10/30/24 Unknown History mcg-salmeterol 21 mcg/actuation HFA inhaler (Advair HFA) folic acid 1 mg tablet 10/30/24 Unknown History Allergies Allergy/AdvReac Type Severity Reaction Status Date / Time No Known Allergies Allergy Verified 10/30/24 12:41 Review of Systems Review of Systems: CONSTITUTIONAL: Reports malaise,no chills, sweats, or fever. EYES: Denies visual changes, redness, or discharge. ENT: Reports rhinorrhea, congestion, sinus pain,no otalgia and no sore throat. CARDIOVASCULAR: Denies chest pain, palpitations, or edema. RESPIRATORY: Reports no cough.? Denies dyspnea. GASTROINTESTINAL: Denies abdominal pain, nausea, vomiting, diarrhea SKIN: Denies rash or itching. MUSCULOSKELETAL: Denies myalgia. NEUROLOGIC: Reports headache. All systems reviewed & are unremarkable except as noted in HPI and below PMFSH Past Medical History Medical History (Updated 10/30/24 @ 13:35 by Sommer Dockery NP) Allergies Diverticulosis Ileitis Gastroparesis GERD (gastroesophageal reflux disease) Social History Social History (Updated 10/30/24 @ 13:36 by Sommer Dockery NP) Smoking status: Never smoker Alcohol intake: current Alcohol use details: social Gender identity (if verbalized by the patient): Male Comments At time of signature, agree with nursing past medical, surgical, social and family history. There is no relevant family history pertinent to the presenting complaint Exam Narrative: GENERAL: Well-appearing, well-nourished, and in no acute distress. HEAD: Normocephalic EYES: PERRLA, conjunctivae clear ENT: Nares clear, turbinates edematous and erythematous, clear discharge, headache. Mucous membranes moist. TM pearly thibodeaux with dull light reflex bilaterally; no tragal tenderness. Oropharynx erythematous without lesions. Tonsils not enlarged and without exudate, no drooling, no hoarseness, no trismus, uvula midline. post nasal drainage NECK: Supple. No lymphadenopathy CHEST: Clear to auscultation, breath sounds equal. No wheezing, rhonchi, rales, or stridor. No respiratory distress, speaks in full sentences.no cough noted SAO2 100% on room air HEART: Regular rate and rhythm. No murmur heard. SKIN: Warm, dry, no rash. NEURO: Alert and oriented x3. PSYCH: Normal mood and affect Course Course Emergency Course: Patient is aware of diagnosis, understands and agrees to treatment plan.? Anticipatory guidance given.? Patient agrees to follow-up as directed and is aware of reasons to seek care at the emergency department. Portions of this record may have been created with voice recognition software Level of Care: Express Care Visit Vital Signs Vital signs: Vital Signs Temperature 36.4 C 10/30/24 12:47 Pulse Rate 82 10/30/24 12:47 Respiratory Rate 18 10/30/24 12:47 Blood Pressure 112/76 10/30/24 12:47 Pulse Oximetry 100 10/30/24 12:47 Oxygen Delivery Room Air 10/30/24 12:47 Temperature 36.4 C 10/30/24 12:47 Pulse Rate 82 10/30/24 12:47 Respiratory Rate 18 10/30/24 12:47 Blood Pressure 112/76 10/30/24 12:47 Pulse Oximetry 100 10/30/24 12:47 Oxygen Delivery Room Air 10/30/24 12:47 Reviewed MDM - URI/Sore Throat MDM Narrative Medical decision making narrative: Differential diagnosis considered: Ch virus, strep pharyngitis, allergic rhinitis, upper respiratory tract infection, sinusitis, rhinosinusitis, nasopharyngitis. viral pharyngitis, otitis media, otitis externa, pneumonia, bronchitis, viral cough syndrome, viral syndrome, and influenza.? Exam findings show no acute concerns or changes; patient is non-toxic appearing and is in no distress.? Patient is appropriate for outpatient treatment and follow-up. Differential Diagnosis Differential diagnosis: Likely upper respiratory infection, sinusitis, viral infection and other (allergies) Medical Records Attestation: I reviewed the patient's medical records. Lab Data Attestation: I reviewed the patient's lab results. Lab results narrative: Influenza A&B negative, COVID antigen negative Critical Care Time Critical Care Time Critical Care Time: No Discharge Plan Discharge Clinical Impression: Seasonal allergies Upper respiratory infection Qualifiers: URI type: unspecified URI Qualified Code(s): J06.9 - Acute upper respiratory infection, unspecified Patient Disposition: Home Condition: Stable Instructions: Upper Respiratory Infection (ED), Allergies (ED) Additional Instructions: Increase fluids especially juices and water Abjl-yuz-zekgjsk cough and cold medicine of your choice for your symptoms Continue your Mickie daily as Cyber Defense Forensics Analyst recommends Continue your inhaler/nebulizer as directed Recommend taking Sudafed plain daily in a.m. and early p.m. heat to the face 20-30 minutes 4-6 times a day for pain Salt water gargles, throat lozenges or throat sprays as desired If your symptoms persist, change or worsen significantly before you can contact your personal physician then please, without delay, go to the emergency department for further evaluation. Follow-up with PCP in 7-10 days or sooner if needed Tylenol or ibuprofen for any fever pain Negative COVID and Flu testing Patient Language: Chinese Prescriptions: No Action cyanocobalamin (vitamin B-12) 1,000 mcg/mL solution folic acid 1 mg tablet fluticasone propion-salmeterol [Advair HFA] 45-21 mcg/actuation HFA aerosol inhaler INHALATION Airsupra 90-80 mcg/actuation HFA aerosol inhaler INHALATION cimetidine 800 mg tablet 800 mg PO BID ergocalciferol (vitamin D2) 1,250 mcg (50,000 unit) capsule 1,250 mcg PO WEEKLY emtricitabine-tenofovir (TDF) 200-300 mg tablet 1 tablet PO DAILY sucralfate [Carafate] 100 mg/mL suspension 1 g PO QID Qty: 300 0RF Follow-up/Referrals: Caitlin Villarreal RN [Primary Care Provider, Nursing] Time of Disposition: 13:12 Quality Pranav Coma Scale Eyes: Open Verbal: Oriented and Alert Motor: Follows Commands Pranav Coma Total Score: 15
[2024-10-30 13:12] LABS: EDCOVIDSCREEN Negative (Negative); EDINFLUASCREEN Negative (Negative); EDINFLUBSCREEN Negative (Negative)
== END 2024-10-30 13:15 | disposition home or self-care (01) ==
PROVIDERS: Emergency Provider Registered Nurse
DX: J30.2 Other seasonal allergic rhinitis (principal); J06.9 Acute upper respiratory infection, unspecified; Z20.822 Contact with and (suspected) exposure to COVID-19; K21.9 Gastro-esophageal reflux disease without esophagitis; K31.84 Gastroparesis
CPT/HCPCS: 87426; 87804; 99211; 99212; G0463